=== PATIENT | male | born 1960 | race African-American/Black ===

== ENCOUNTER 2019-04-28 13:42 | Inpatient (IN) | payer BC ==
[2019-04-28 13:52] VITALS: BMI 25.9
[2019-04-28] MEDS ORDERED: ADENOSINE 6 MG/2 ML VIAL IVPUSH ONE ×2 (14:03→14:23)
[2019-04-28] MEDS ORDERED: SODIUM CHLORIDE 1,000 ML IV STA (14:23)
--- NOTE | 2019-04-28 14:23 | PDOC ---
History of Present Illness - General Chief Complaint: Palpitations Stated Complaint: ASMTHA Past History - Past Medical History Allergies/Adverse Reactions: Allergies Allergy/AdvReac Type Severity Reaction Status Date / Time ibuprofen [From Advil] AdvReac Intermediate Swelling Verified 04/28/19 13:52 Home Medications: Ambulatory Orders Albuterol 0.083% Nebulizer Nguyen [Ventolin 0.083% Nebulizer Soln -] 1 neb NEB Q6H #30 vial 08/09/16 Albuterol Sulfate [Proair Respiclick] 90 mcg IH ASDIR #1 aer.pow.ba 08/09/16 Azithromycin [Zithromax -] 250 mg PO UTDICT #6 tab 08/09/16 predniSONE [Deltasone -] 40 mg PO DAILY #14 tablet 08/09/16 Anemia: No Asthma: Yes Cancer: No Cardiac Disorders: No CVA: No COPD: No CHF: No Dementia: No Diabetes: No GI Disorders: No Disorders: No HTN: No Hypercholesterolemia: No Liver Disease: No Seizures: No Thyroid Disease: No - Surgical History Abdominal Surgery: No Appendectomy: No Cardiac Surgery: No Cholecystectomy: No Lung Surgery: No Neurologic Surgery: No Orthopedic Surgery: No - Immunization History Td Vaccination: Yes TDAP Vaccination: Yes Immunization Up to Date: Yes - Psycho Social/Smoking Cessation Hx Smoking Status: Yes Smoking History: Current every day smoker Years of Tobacco Use: 5 Have you smoked in the past 12 months: No Number of Cigarettes Smoked Daily: 10 Information on smoking cessation initiated: No 'Breaking Loose' booklet given: 08/23/13 Hx Alcohol Use: No Drug/Substance Use Hx: No Substance Use Type: Alcohol, Prescribed Hx Substance Use Treatment: Yes (25 YRS AGO [facility]) *Physical Exam - Vital Signs Last Vital Signs Temp Pulse Resp BP Pulse Ox 98.3 F 91 H 18 93/68 98 04/28/19 13:48 04/28/19 13:48 04/28/19 13:48 04/28/19 13:48 04/28/19 13:48 ED Treatment Course - LABORATORY CBC & Chemistry Diagram: 04/29/19 11:00 04/29/19 04:40 Medical Decision Making - Medical Decision Making HPI: 58yo M with PMH of asthma presenting with shortness of breath and palpitations. Patient states that his symptoms different from his asthma. He felt short of breath last night as he sometimes does with his asthma but did not use his albuterol because he was afraid he might run out. This morning he took his albuterol twice and felt palpitations and shortness of breath. Never felt this way after taking albuterol in the past and has taken this medication for years. Does not have chest pain. Denies cardiac history or history of thyroid problems. Has never followed with a real estate clerk. No fevers or chills. PCP: Dr. Barker ROS: Constitutional: no fever, no chills HEENT: no throat pain, no dysphagia Cardiovascular: no chest pain, +palpitations Respiratory: no cough, +shortness of breath Gastrointestinal: no abdominal pain, no nausea Genitourinary: no dysuria, no hematuria Musculoskeletal: no myalgia, no arthralgia Skin: no rash, no itching Neurologic: no headache, no weakness PE: General: Awake, alert, and fully oriented, in no acute distress Head: No signs of trauma Eyes: EOMI, sclera anicteric ENT: Moist mucus membranes Neck: Normal ROM, supple Lungs: Lungs clear, Normal breath sounds Cardio: Tachycardic, Regular rhythm, S1 and S2 present Abdomen: Soft, nontender Extremities: Normal range of motion, Distal pulses present SKIN: Warm, Dry, normal turgor Neurologic: Cranial nerves II through XII grossly intact. Normal speech ED Course/MDM: SVT with HR in the 170s EKG at 13:45: rate 170, QTc 443, SVT Valsalva maneuver unsuccessful Adenosine 6mg given Rate transitioned to the low 100s 04/28/19 14:22 CBC WBC 14.3 K/mm3 (4.0-10.0) H 04/28/19 14:40 RBC 5.45 M/mm3 (4.00-5.60) 04/28/19 14:40 Hgb 16.0 GM/dL (11.7-16.9) 04/28/19 14:40 Hct 48.7 % (35.4-49) 04/28/19 14:40 MCV 89.4 fl (80-96) 04/28/19 14:40 MCH 29.4 pg (25.7-33.7) 04/28/19 14:40 MCHC 32.9 g/dl (32.0-35.9) 04/28/19 14:40 RDW 13.4 % (11.9-15.9) 04/28/19 14:40 Plt Count 334 K/MM3 (134-434) D 04/28/19 14:40 MPV 8.5 fl (7.5-11.1) 04/28/19 14:40 Absolute Neuts (auto) 9.2 K/mm3 (1.5-8.0) H 04/28/19 14:40 Neutrophils % 64.5 % (42.8-82.8) D 04/28/19 14:40 Lymphocytes % 27.2 % (8-40) D 04/28/19 14:40 Monocytes % 6.0 % (3.8-10.2) D 04/28/19 14:40 Eosinophils % 1.5 % (0-4.5) 04/28/19 14:40 Basophils % 0.8 % (0-2.0) 04/28/19 14:40 Nucleated RBC % 0 % (0-0) 04/28/19 14:40 Leukocytosis CMP Sodium 139 mmol/L (136-145) 04/28/19 14:40 Potassium 4.5 mmol/L (3.5-5.1) 04/28/19 14:40 Chloride 104 mmol/L (98-107) 04/28/19 14:40 Carbon Dioxide 29 mmol/L (21-32) 04/28/19 14:40 Anion Gap 6 MMOL/L (8-16) L 04/28/19 14:40 BUN 19.2 mg/dL (7-18) H 04/28/19 14:40 Creatinine 1.3 mg/dL (0.55-1.3) 04/28/19 14:40 Est GFR (CKD-EPI)AfAm 69.71 04/28/19 14:40 Est GFR (CKD-EPI)NonAf 60.14 04/28/19 14:40 Random Glucose 322 mg/dL (74-106) H 04/28/19 14:40 Calcium 9.5 mg/dL (8.5-10.1) 04/28/19 14:40 Magnesium 2.0 mg/dL (1.8-2.4) 04/28/19 14:40 Total Bilirubin 0.4 mg/dL (0.2-1) 04/28/19 14:40 AST 17 U/L (15-37) 04/28/19 14:40 ALT 37 U/L (13-61) 04/28/19 14:40 Alkaline Phosphatase 124 U/L (45-117) H 04/28/19 14:40 Creatine Kinase 176 U/L (26-308) 04/28/19 14:40 Creatine Kinase Index 2.8 % (0.0-5.0) 04/28/19 14:40 CK-MB (CK-2) 5.1 ng/mL (0.5-3.6) H 04/28/19 14:40 Troponin I 0.12 ng/ml (0.00-0.05) H 04/28/19 14:40 Total Protein 7.3 g/dl (6.4-8.2) 04/28/19 14:40 Albumin 4.1 g/dl (3.4-5.0) 04/28/19 14:40 TSH 3.85 uIU/ml (0.358-3.74) H 04/28/19 14:40 Electrolytes unremarkable Tsh mildly elevated Tpn elevated, 0.12 Rate in the 90s CXR as read by radiology: "Indication: Tachycardia Prior: July 2016 Procedure : Single view of the chest is performed. Findings: No osseous abnormalities are identified. Cardiac silhouette is within normal limits. Mediastinum is within normal limits with no evidence of widening. Aortic knob and descending aorta are well defined. There is no focal infiltrate or pleural effusion. No pneumothorax or pulmonary contusion is identified. IMPRESSION: No active pulmonary disease " Plan for admission 04/28/19 16:42 Dr. Wright discussed case with Dr. Villegas who accepted patient for admission under Dr. Hawkins 04/28/19 17:03 Discharge - Discharge Information Problems reviewed: Yes Clinical Impression/Diagnosis: Palpitations, SVT (supraventricular tachycardia) Condition: Guarded - Admission Yes - Follow up/Referral - Patient Discharge Instructions - Post Discharge Activity
--- NOTE | 2019-04-28 14:32 | PDOC ---
Attending Attestation - Resident Resident Name: Brooke Aguirre - ED Attending Attestation I have performed the following: I have examined & evaluated the patient, The case was reviewed & discussed with the resident, I agree w/resident's findings & plan, Exceptions are as noted - HPI HPI: 04/28/19 14:24 58-year-old male with a history of asthma presents to the emergency department with shortness of breath since last night and palpitations for the last 2 hours. Patient reports that shortness of breath last night felt like his asthma but he ran out of his nebulizer. He also did not use his albuterol pump because last night because he was worried he would run out, and was not sure if he really needed it. This morning when the shortness of breath continued, he used his albuterol twice and shortly thereafter began to experience palpitations. Denies any chest pain. Denies fevers, chills, coughing, diaphoresis, dizziness, focal weakness or numbness, abdominal pain.Has otherwise been in his usual state of good health. Denies any recent travel or immobility. - Physicial Exam PE: 04/28/19 14:32 GENERAL: Awake, alert, and fully oriented, in no acute distress. EYES: PERRLA, EOMI, sclera anicteric, conjunctiva clear ENT: Oropharynx clear without exudates. Moist mucosa NECK: Normal ROM, supple, no lymphadenopathy, JVD, or masses LUNGS: Breath sounds equal, clear to auscultation bilaterally. No wheezes, and no crackles HEART: HR 171, regular, normal S1 and S2, no murmurs, rubs or gallops ABDOMEN: Soft, nontender, normoactive bowel sounds. No guarding, no rebound. No masses EXTREMITIES: Normal range of motion, no edema. No cords, erythema, or tenderness. WWP distally. NEUROLOGICAL: Normal speech, cranial nerves intact, equal strength and sensation b/l SKIN: Warm, Dry, normal turgor, no rashes or lesions noted. - Medical Decision Making 04/28/19 14:33 58-year-old male with a history of asthma presents to the emergency department with supraventricular tachycardia to 170. BP 122/100 and stable. Vagal maneuver with leg raise was attempted unsuccessfully. As such patient was given adenosine 6 mg with improvement of heart rate from 170 to 110. Rpt BP 126/96. Patient feeling better, but still reporting some dyspnea. SVT may have been triggered by the albuterol, however patient states he uses his albuterol almost daily with no history of palpitations or fast heart rate. Lungs are clear with no wheezing. Plan for dyspnea and cardiac work-up with labs and chest x-ray. Anticipate admission. 04/28/19 16:55 Labs remarkable for troponin of 0.12, likely demand in the setting of tachycardia. Labs also remarkable for random glucose of 322, patient denies history of diabetes. No anion gap to suggest DKA. Remaining labs within normal limits Chest x-ray clear Case discussed with nurse practitioner kelsie, patient accepted for admission to Dr. Hawkins's service Case discussed in detail with admitting physician including history, physical exam and ancillary studies. Admitting physician has assumed care for the patient, will follow all pending diagnostics and will complete the evaluation and treatment. Heart Score/ECG Review #1 04/28/19 14:36 Twelve-lead EKG was performed and reviewed by me. Supraventricular tachycardia, rate 170. Normal axis. No ST elevations or T wave inversions. #2 04/28/19 14:36 EKG read and interpreted by me. Sinus tachycardia, rate 115. Normal axis. No ST elevations or T wave inversions.
[2019-04-28 14:57] LABS: BASO % 0.8 % (0-2.0); EOS % 1.5 % (0-4.5); HEMATOCRIT 48.7 % (35.4-49); LYMPH % 27.2 % (8-40); MCH 29.4 pg (25.7-33.7); MCHC 32.9 g/dl (32.0-35.9); MEAN CELL VOLUME 89.4 fl (80-96); MEAN PLT VOLUME 8.5 fl (7.5-11.1); NEUT % 64.5 % (42.8-82.8); PLATELET COUNT 334 K/MM3 (134-434); RBC 5.45 M/mm3 (4.00-5.60); RDW 13.4 % (11.9-15.9); WHITE BLOOD COUNT 14.3 K/mm3 (4.0-10.0)
[2019-04-28 15:12] LABS: INR 0.97 (0.83-1.09); PROTHROMBIN TIME (PATIENT) 11.5 SEC (9.7-13.0)
[2019-04-28 15:15] LABS: ACTIVATED PTT 38.9 SECONDS (25.2-36.5)
[2019-04-28 15:34] LABS: ALBUMIN 4.1 g/dl (3.4-5.0); BILIRUBIN,TOTAL 0.4 mg/dL (0.2-1); BLOOD UREA NITROGEN 19.2 mg/dL (7-18); CALCIUM 9.5 mg/dL (8.5-10.1); CREATININE 1.3 mg/dL (0.55-1.3); POTASSIUM 4.5 mmol/L (3.5-5.1); TOT PROT 7.3 g/dl (6.4-8.2)
--- NOTE | 2019-04-28 15:42 | EKG ---
Test Reason : Blood Pressure : / mmHG Vent. Rate : 170 BPM Atrial Rate : 150 BPM P-R Int : 000 ms QRS Dur : 082 ms QT Int : 264 ms P-R-T Axes : 000 064 046 degrees QTc Int : 443 ms SUPRAVENTRICULAR TACHYCARDIA OTHERWISE NORMAL ECG WHEN COMPARED WITH ECG OF 09-AUG-2016 16:11, VENT. RATE HAS INCREASED BY 63 BPM Confirmed by Jose Raul Garcia ([id number]) on 04/28/2019 3:42:33 PM Referred By: Confirmed By:Jose Raul Garcia
[2019-04-28] MEDS ORDERED: ASPIRIN 325 MG TABLET PO ONE (16:14)
[2019-04-28] MEDS ORDERED: ASPIRIN 325 MG ENTERIC COATED TABLET (FP) ONE (16:54)
--- NOTE | 2019-04-28 16:57 | HP ---
CHIEF COMPLAINT: chest pain, heart palpitations and shortness of breath PCP: does not have one, last saw PCP about 8-10 years ago. HISTORY OF PRESENT ILLNESS: Patient is a 58 year old male with a significant past medical history of asthma and current daily smoker. He presents to the ED today with c/o of shortness of breath since last night. Last night he attempted to use his nebulizer but did not have enough and therefore did not use any. He went to bed and this morning the shortness of breath worsened and he used his albuterol twice and began to have palpitations after. He denies chest pain. In the ED he was noted be in supraventricular tachycardia to the 170s with a BP 120s/100s. Vagal maneuver with leg raise was attempted, but unsuccessful per ED signout. He was given adenosine 6 mg with improvement of heart rate from 170 to 110, BP 120/90s. On exam, patient reports feeling better, but still having dyspnea with physical exertion. Denies chest pain. He reports overuse of allbuterol but has not ever experienced palpitations after using it. He reports that he has not seen a PCP in over 10 years. He uses his family allbuteral nebulizers and at times will use it up to 15 times per day. He has never been told his blood sugars were elevated. ER course was notable for: (1) troponin of 0.12 (2) glucose of 322 (3) ekg SVT, rate 170, no ST elevations or T wave inversions. Sinus tachycardia , rate 115. No ST elevations or T wave inversions. Recent Travel: denies PAST MEDICAL HISTORY: asthma and daily smoker PAST SURGICAL HISTORY: none Social History: Smokin/2 pack daily Alcohol: denies Drugs: denies Allergies ibuprofen [From Advil] Adverse Reaction (Intermediate, Verified 04/28/19 13:52) Swelling HOME MEDICATIONS: Home Medications Medication Instructions Recorded Albuterol 0.083% Nebulizer Nguyen 1 neb NEB Q6H #30 vial 08/09/16 [Ventolin 0.083% Nebulizer Soln -] Albuterol Sulfate [Proair 90 mcg IH ASDIR #1 aer.pow.ba 08/09/16 Respiclick] Azithromycin [Zithromax -] 250 mg PO UTDICT #6 tab 08/09/16 predniSONE [Deltasone -] 40 mg PO DAILY #14 tablet 08/09/16 REVIEW OF SYSTEMS PHYSICAL EXAMINATION Vital Signs - 24 hr 04/28/19 13:48 Temperature 98.3 F Pulse Rate 91 H Respiratory 18 Rate Blood Pressure 93/68 O2 Sat by Pulse 98 Oximetry (%) GENERAL: Awake, alert, and fully oriented, in no acute distress. HEAD: Normal with no signs of trauma. EYES: Pupils equal, round and reactive to light, extraocular movements intact, sclera anicteric, conjunctiva clear. No lid lag. EARS, NOSE, THROAT: Ears normal, nares patent, oropharynx clear without exudates. Moist mucous membranes. NECK: Normal range of motion, supple without lymphadenopathy, JVD, or masses. LUNGS: Breath sounds equal, clear to auscultation bilaterally. No wheezes, and no crackles. No accessory muscle use. HEART: Regular rate and rhythm, normal S1 and S2 without murmur, rub or gallop. ABDOMEN: Soft, nontender, not distended, normoactive bowel sounds, no guarding, no rebound, no masses. No hepatomegaly or splenomegaly. MUSCULOSKELETAL: Normal range of motion at all joints. No bony deformities or tenderness. No CVA tenderness. UPPER EXTREMITIES: 2+ pulses, warm, well-perfused. No cyanosis. No clubbing. No peripheral edema. LOWER EXTREMITIES: 2+ pulses, warm, well-perfused. No calf tenderness. No peripheral edema. NEUROLOGICAL: Cranial nerves II-XII intact. Normal speech. Normal gait. PSYCHIATRIC: Cooperative. Good eye contact. Appropriate mood and affect. SKIN: Warm, dry, normal turgor, no rashes or lesions noted, normal capillary refill. Laboratory Results - last 24 hr 04/28/19 04/28/19 04/28/19 14:40 14:40 14:40 WBC 14.3 H RBC 5.45 Hgb 16.0 Hct 48.7 MCV 89.4 MCH 29.4 MCHC 32.9 RDW 13.4 Plt Count 334 D MPV 8.5 Absolute Neuts (auto) 9.2 H Neutrophils % 64.5 D Lymphocytes % 27.2 D Monocytes % 6.0 D Eosinophils % 1.5 Basophils % 0.8 Nucleated RBC % 0 PT with INR 11.50 INR 0.97 PTT (Actin FS) 38.9 H Sodium Potassium Chloride Carbon Dioxide Anion Gap BUN Creatinine Est GFR (CKD-EPI)AfAm Est GFR (CKD-EPI)NonAf Random Glucose Calcium Magnesium Total Bilirubin AST ALT Alkaline Phosphatase Creatine Kinase 176 Creatine Kinase Index 2.8 CK-MB (CK-2) 5.1 H Troponin I 0.12 H Total Protein Albumin TSH 04/28/19 14:40 WBC RBC Hgb Hct MCV MCH MCHC RDW Plt Count MPV Absolute Neuts (auto) Neutrophils % Lymphocytes % Monocytes % Eosinophils % Basophils % Nucleated RBC % PT with INR INR PTT (Actin FS) Sodium 139 Potassium 4.5 Chloride 104 Carbon Dioxide 29 Anion Gap 6 L BUN 19.2 H Creatinine 1.3 Est GFR (CKD-EPI)AfAm 69.71 Est GFR (CKD-EPI)NonAf 60.14 Random Glucose 322 H Calcium 9.5 Magnesium 2.0 Total Bilirubin 0.4 AST 17 ALT 37 Alkaline Phosphatase 124 H Creatine Kinase Creatine Kinase Index CK-MB (CK-2) Troponin I Total Protein 7.3 Albumin 4.1 TSH 3.85 H ASSESSMENT/PLAN: Family Medical History Family History: Denies Problem List - Problem (1) NSTEMI (non-ST elevated myocardial infarction) Assessment/Plan: elevated troponins in the setting of SVT. Required adenosine 6mg in the ED for rate control after ekg showed SVT 170s. He was successfully converted. Now currently Sinus tachycardia 160s. Etiology of SVT unclear, but has been overusing allbuterol up to 15 times per day at home. He does not have a PCP. Monitor on tele echocardiogram Cardiology consult trend troponins Further workup per cardiology monitor BP start on cardizem for rate control, no BB secondary to asthma. Code(s): I21.4 - NON-ST ELEVATION (NSTEMI) MYOCARDIAL INFARCTION (2) SVT (supraventricular tachycardia) Assessment/Plan: given adenosine with conversion to sinus tachy 90s 110s start on cardizem 30mg PO TID utox echo hydrate montor on tele monitor electrolytes Code(s): I47.1 - SUPRAVENTRICULAR TACHYCARDIA (3) Troponin level elevated Assessment/Plan: elevated troponin on admission. continue to trend. likely demand ischemia. cardiology consulted. Code(s): R79.89 - OTHER SPECIFIED ABNORMAL FINDINGS OF BLOOD CHEMISTRY (4) Palpitations Assessment/Plan: see above. Code(s): R00.2 - PALPITATIONS (5) Asthma Assessment/Plan: uncontrolled asthma with very poor follow up and overuse of allbuterol pulmonary consulted Code(s): J45.909 - UNSPECIFIED ASTHMA, UNCOMPLICATED Qualifiers: Asthma severity: mild intermittent (6) Hyperglycemia Assessment/Plan: serum blood glucose 322 on admission labs no history of diabetes per patient and has not had any workup. will order hmgA1c in a.m. monitor bgms ac/hs Code(s): R73.9 - HYPERGLYCEMIA, UNSPECIFIED (7) Dyspnea Code(s): R06.00 - DYSPNEA, UNSPECIFIED (8) Hypoxia Code(s): R09.02 - HYPOXEMIA (9) Prophylactic measure Assessment/Plan: fen hydrate overnight monitor electrolytes low salt diet/convert to diabetic diet if hmga1c elevated full code heparin bid Code(s): Z29.9 - ENCOUNTER FOR PROPHYLACTIC MEASURES, UNSPECIFIED Visit type - Emergency Visit Emergency Visit: Yes ED Registration Date: 04/28/19 Care time: The patient presented to the Emergency Department on the above date and was hospitalized for further evaluation of their emergent condition. - New Patient This patient is new to me today: Yes Date on this admission: 04/29/19 - Critical Care Critical Care patient: No
[2019-04-28] MEDS ORDERED: ALBUTEROL SO4 2.5/IPRATROPIUM 0.5 INH SOL 3 ML VIAL.NEB. NEB PRN (18:18)
[2019-04-28] MEDS ORDERED: SODIUM CHLORIDE 1,000 ML IV SCH (18:30)
[2019-04-28] MEDS ORDERED: ACETAMINOPHEN 325 MG TABLET (FP) PO PRN (18:36)
[2019-04-28 19:22] LABS: PHOSPHOROUS 3.8 mg/dL (2.5-4.9)
[2019-04-28] MEDS: dilTIAZem HCL 30 MG TABLET (FP) PO SCH (23:00)
[2019-04-28] MEDS: HEPARIN NA (PORCINE) 5,000 UNITS/ML 1ML VIAL SQ SCH (23:00)
[2019-04-28] MEDS ORDERED: dilTIAZem HCL 30 MG TABLET (FP) ONE (23:18)
[2019-04-28] MEDS ORDERED: HEPARIN NA (PORCINE) 5,000 UNITS/ML 1ML VIAL ONE (23:19)
[2019-04-29] MEDS ORDERED: dilTIAZem HCL 30 MG TABLET (FP) ONE (05:30)
[2019-04-29] MEDS: dilTIAZem HCL 30 MG TABLET (FP) PO SCH ×3 (06:21→21:53)
[2019-04-29 06:43] LABS: URINE APPEARANCE CLEAR; URINE BILIRUBIN NEGATIVE (NEGATIVE); URINE COLOR YELLOW; URINE GLUCOSE (UA) 3+ (NEGATIVE); URINE KETONE NEGATIVE (NEGATIVE); URINE LEUK ESTERASE NEGATIVE (NEGATIVE); URINE NITRITE NEGATIVE (NEGATIVE); URINE PROTEIN NEGATIVE (NEGATIVE); URINE UROBILINOGEN 0.2 mg/dL (0.2-1.0)
[2019-04-29 06:52] LABS: COCAINE, UR NEGATIVE ng/ml (CUTOFF=300); METHADONE, UR NEGATIVE ng/ml (CUTOFF=300); OPIATES, URI NEGATIVE ng/ml (CUTOFF=300); PHENCYCLIDINE,URINE NEGATIVE ng/ml (CUTOFF=25); URINE AMPHETAMINES NEGATIVE ng/ml (CUTOFF=500); URINE BARBITURATES NEGATIVE ng/ml (CUTOFF=200); URINE BENZODIAZEPINES NEGATIVE ng/ml (CUTOFF=200)
[2019-04-29 09:24] LABS: ALBUMIN 3.3 g/dl (3.4-5.0); BILIRUBIN,TOTAL 0.3 mg/dL (0.2-1); BLOOD UREA NITROGEN 13.2 mg/dL (7-18); CALCIUM 8.4 mg/dL (8.5-10.1); CREATININE 0.8 mg/dL (0.55-1.3); MAGNESIUM 2.5 mg/dL (1.8-2.4); POTASSIUM 4.3 mmol/L (3.5-5.1)
[2019-04-29] MEDS ORDERED: HEPARIN NA (PORCINE) 5,000 UNITS/ML 1ML VIAL ONE (09:44)
[2019-04-29] MEDS ORDERED: PT OWN MED DRAWER 7, Y5N ONE (10:08)
--- NOTE | 2019-04-29 10:08 | CON.CARD ---
Consult Consult Specialty:: Cardiology - History of Present Illness History of Present Illness: Patient is a 58 year old male with a significant past medical history of asthma and current daily smoker He presents to the ED today with c/o of shortness of breath since last night. Last night he attempted to use his nebulizer but did not have enough and therefore did not use any. He went to bed and this morning the shortness of breath worsened and he used his albuterol twice and began to have palpitations after. He denies chest pain. In the ED he was noted be in supraventricular tachycardia to the 170s with a BP 120s/100s. Vagal maneuver with leg raise was attempted, but unsucessful per ED signout. He was given adenosine 6 mg with improvement of heart rate from 170 to 110, BP 120/90s. On exam, patient reports feeling better, but still having dyspnea with physical exertion. Denies chest pain. He reports overuse of allbuterol but has not ever experienced palpitations after using it. - History Source History Provided By: Patient, Medical Record - Past Medical History Pulmonary: Yes: Asthma - Alcohol/Substance Use Hx Alcohol Use: No History of Substance Use: reports: Tranquilizers (Ambien). 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 History of Recent Travel: Yes Home Medications - Allergies Allergies/Adverse Reactions: Allergies Allergy/AdvReac Type Severity Reaction Status Date / Time ibuprofen [From Advil] AdvReac Intermediate Swelling Verified 04/28/19 13:52 - Home Medications Home Medications: Ambulatory Orders Albuterol 0.083% Nebulizer Nguyen [Ventolin 0.083% Nebulizer Soln -] 1 neb NEB Q6H #30 vial 08/09/16 Albuterol Sulfate [Proair Respiclick] 90 mcg IH ASDIR #1 aer.pow.ba 08/09/16 Azithromycin [Zithromax -] 250 mg PO UTDICT #6 tab 08/09/16 predniSONE [Deltasone -] 40 mg PO DAILY #14 tablet 08/09/16 Review of Systems - Review of Systems Constitutional: reports: Malaise Eyes: reports: No Symptoms HENT: reports: No Symptoms Neck: reports: No Symptoms Cardiovascular: reports: Palpitations, Shortness of Breath Gastrointestinal: reports: No Symptoms Genitourinary: reports: No Symptoms Breasts: reports: No Symptoms Reported Musculoskeletal: reports: No Symptoms Integumentary: reports: No Symptoms Neurological: reports: No Symptoms Endocrine: reports: No Symptoms Hematology/Lymphatic: reports: No Symptoms Psychiatric: reports: No Symptoms Vital Signs: Vital Signs Temperature 98.3 F 04/28/19 13:48 Pulse Rate 85 04/29/19 06:09 Respiratory Rate 17 04/29/19 06:09 Blood Pressure 117/84 04/29/19 06:09 O2 Sat by Pulse Oximetry (%) 97 04/29/19 06:09 Constitutional: Yes: Well Nourished, No Distress, Calm Eyes: Yes: WNL, Conjunctiva Clear, EOM Intact HENT: Yes: WNL, Atraumatic, Normocephalic Neck: Yes: WNL, Supple, Trachea Midline Respiratory: Yes: WNL, Regular, CTA Bilaterally Gastrointestinal: Yes: WNL, Normal Bowel Sounds Renal/: Yes: WNL Cardiovascular: Yes: WNL, Regular Rate and Rhythm Musculoskeletal: Yes: WNL Extremities: Yes: WNL Integumentary: Yes: WNL Neurological: Yes: WNL, Alert, Oriented ...Motor Strength: WNL Psychiatric: Yes: WNL, Alert, Oriented - Other Data Labs, Other Data: CBC, BMP 04/28/19 14:40 04/29/19 04:40 INR, PTT INR 0.97 (0.83-1.09) 04/28/19 14:40 Troponin, BNP 04/28/19 04/28/19 04/29/19 14:40 20:50 04:40 Troponin I 0.12 H 0.16 H 0.10 H Troponin, BNP 04/28/19 04/28/19 04/29/19 14:40 20:50 04:40 Troponin I 0.12 H 0.16 H 0.10 H Imaging - Results Chest X-ray: Image Reviewed (no i/e) EKG: Image Reviewed (SVT) Problem List - Problems (1) Palpitations Code(s): R00.2 - PALPITATIONS (2) SVT (supraventricular tachycardia) Code(s): I47.1 - SUPRAVENTRICULAR TACHYCARDIA (3) Allergic conjunctivitis of left eye Code(s): H10.12 - ACUTE ATOPIC CONJUNCTIVITIS, LEFT EYE (4) Asthma Code(s): J45.909 - UNSPECIFIED ASTHMA, UNCOMPLICATED Qualifiers: Asthma severity: mild intermittent (5) Bronchitis Code(s): J40 - BRONCHITIS, NOT SPECIFIED ACUTE OR CHRONIC (6) Conjunctivitis Code(s): H10.9 - UNSPECIFIED CONJUNCTIVITIS (7) Cough variant asthma Code(s): J45.991 - COUGH VARIANT ASTHMA (8) DVT prophylaxis Code(s): [id number] - (9) Elevated liver function tests Code(s): R79.89 - OTHER SPECIFIED ABNORMAL FINDINGS OF BLOOD CHEMISTRY (10) Hypoxia Code(s): R09.02 - HYPOXEMIA (11) Laceration of eyebrow and forehead Code(s): S01.81XA - LACERATION W/O FOREIGN BODY OF OTH PART OF HEAD, INIT ENCNTR ; S01.119A - LACERATION W/O FB OF UNSP EYELID AND PERIOCULAR AREA, INIT Qualifiers: Encounter type: initial encounter Laterality: right (12) Laceration of nose Code(s): S01.21XA - LACERATION WITHOUT FOREIGN BODY OF NOSE, INITIAL ENCOUNTER Qualifiers: Encounter type: initial encounter Qualified Code(s): S01.21XA - Laceration without foreign body of nose, initial encounter (13) Pneumonia Code(s): J18.9 - PNEUMONIA, UNSPECIFIED ORGANISM (14) Rhabdomyolysis Code(s): M62.82 - RHABDOMYOLYSIS (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 demand ischemia due to SVT with HR 170 Plan telemetry echo cardizem ASA lipids mibi stress test when stable SVT ablation as outpatient
[2019-04-29] MEDS: HEPARIN NA (PORCINE) 5,000 UNITS/ML 1ML VIAL SQ SCH ×2 (10:13→21:53)
[2019-04-29] MEDS: NICOTINE 21 MG/24 HOURS TOPICAL PATCH TD SCH (11:25)
[2019-04-29] MEDS ORDERED: ASPIRIN 325 MG TABLET PO ONE (11:53)
[2019-04-29 11:56] LABS: EOS % 2.8 % (0-4.5); HEMATOCRIT 43.3 % (35.4-49); HEMOGLOBIN 14.1 GM/dL (11.7-16.9); LYMPH % 30.2 % (8-40); MCH 29.3 pg (25.7-33.7); MCHC 32.6 g/dl (32.0-35.9); MEAN CELL VOLUME 89.8 fl (80-96); MEAN PLT VOLUME 8.6 fl (7.5-11.1); MONO % 5.5 % (3.8-10.2); NEUT % 60.5 % (42.8-82.8); PLATELET COUNT 255 K/MM3 (134-434); RBC 4.82 M/mm3 (4.00-5.60); RDW 13.5 % (11.9-15.9); WHITE BLOOD COUNT 8.7 K/mm3 (4.0-10.0)
--- NOTE | 2019-04-29 12:04 | ECHO ---
Name: LIAM MORROW Exam:Adult Echocardiogram Study Date: 04/29/2019 08:38 AM Age: 58 yrs Reason For Study: Chest pain Height: 73 in Weight: 197 lb BSA: 2.1 m2 MMode/2D Measurements & Calculations IVSd: 0.87 cm Ao root diam: 3.1 cm LVIDd: 4.2 cm LA dimension: 2.8 cm LVIDs: 2.7 cm LVPWd: 0.82 cm EDV(Teich): 79.7 ml LVOT diam: 2.0 cm ESV(Teich): 27.6 ml LAV (MOD-bp): 46.2 ml Doppler Measurements & Calculations MV E max roger: 74.2 cm/sec Ao V2 max: 101.8 cm/sec MV A max roger: 64.0 cm/sec Ao max P.1 mmHg MV E/A: 1.2 MV dec time: 0.12 sec NELY(V,D): 2.5 cm2 LV V1 max P.4 mmHg PA V2 max: 81.4 cm/sec LV V1 max: 77.1 cm/sec PA max P.7 mmHg Med Peak E' Roger: 10.2 cm/sec Med E/e': 7.3 Lat Peak E' Roger: 10.6 cm/sec Lat E/e': 7.0 Procedure A two-dimensional transthoracic echocardiogram with color flow and Doppler was performed. The study w as technically difficult with many images being suboptimal in quality. Left Ventricle The left ventricular size, thickness and function are normal. The left ventricle is not well visualiz ed. The left ventricular ejection fraction is normal. Left Ventricular Filling pattern is normal for age. Reg ional wall motion abnormalities cannot be excluded due to limited visualization. Right Ventricle The right ventricle is not well visualized. Atria Normal left and right atrial size and function. Mitral Valve There is mild mitral valve thickening. There is no mitral valve stenosis. There is trace mitral regur gitation. Tricuspid Valve There is mild tricuspid valve thickening. There is no tricuspid stenosis. There was insufficient TR d etected to calculate RV systolic pressure. Aortic Valve The aortic valve is normal in structure and function. No hemodynamically significant valvular aortic stenosis. No aortic regurgitation is present. Pulmonic Valve The pulmonic valve is not well visualized. Great Vessels The aortic root is normal size. Pericardium/Pleura There is no pericardial effusion. Interpretation Summary The left ventricular size, thickness and function are normal The left ventricular ejection fraction is normal. The right ventricle is not well visualized. The study was technically difficult with many images being suboptimal in quality. The left ventricle is not well visualized. Regional wall motion abnormalities cannot be excluded due to limited visualization. Left Ventricular Filling pattern is normal for age. There is trace mitral regurgitation. There was insufficient TR detected to calculate RV systolic pressure. MD Thomas Bedolla 04/29/2019 12:03 PM
--- NOTE | 2019-04-29 12:54 | EKG ---
Test Reason : Blood Pressure : / mmHG Vent. Rate : 081 BPM Atrial Rate : 081 BPM P-R Int : 140 ms QRS Dur : 086 ms QT Int : 358 ms P-R-T Axes : 009 042 028 degrees QTc Int : 415 ms NORMAL SINUS RHYTHM NORMAL ECG Confirmed by MARTHA ARANGO MD ([id number]) on 04/29/2019 12:53:36 PM Referred By: Flo FELICIANO Confirmed By:MARTHA ARANGO MD
--- NOTE | 2019-04-29 14:12 | PN ---
Physical Exam: SUBJECTIVE: Patient seen and examined at the bedside. Denies chest pain, reports improvement of shortness of breath. Patient has not seen a PCP in apx 10 years. He will need f/u made prior to d/c. He was informed that his Hmg A1c was 8.8 which makes him a diabetic. OBJECTIVE: Patient is a 58 year old male with a significant past medical history of asthma and current daily smoker. He presents to the ED on 04/28/19 with c/o of shortness of breath. At home he attempted to use his nebulizer but did not have enough and therefore did not use any. He then woke up with worsening shortness of breath and used his albuterol twice. After albuterol, he began to have palpitations after. He denies chest pain. In the ED he was noted be in supraventricular tachycardia to the 170s with a BP 120s/100s. Vagal maneuver with leg raise was attempted, but unsuccessful per ED signout. He was given adenosine 6 mg with improvement of heart rate from 170 to 110, BP 120/90s. He reports that he has not seen a PCP in over 10 years. He uses his family allbuteral nebulizers and at times will use it up to 15 times per day. He has never been told his blood sugars were elevated. Vital Signs Period Temp Pulse Resp BP Sys/Phipps Pulse Ox Last 24 Hr 84-98 16-20 117-121/74-86 97-98 GENERAL: Awake, alert, and fully oriented, in no acute distress. HEAD: Normal with no signs of trauma. EYES: Pupils equal, round and reactive to light, extraocular movements intact, sclera anicteric, conjunctiva clear. No lid lag. EARS, NOSE, THROAT: Ears normal, nares patent, oropharynx clear without exudates. Moist mucous membranes. NECK: Normal range of motion, supple without lymphadenopathy, JVD, or masses. LUNGS: Breath sounds equal, diminished to auscultation bilaterally. no wheezing. HEART: Regular rate and rhythm, normal S1 and S2 without murmur, rub or gallop. ABDOMEN: Soft, nontender, not distended, normoactive bowel sounds, no guarding, no rebound, no masses. No hepatomegaly or splenomegaly. MUSCULOSKELETAL: Normal range of motion at all joints. No bony deformities or tenderness. No CVA tenderness. UPPER EXTREMITIES: No peripheral edema. LOWER EXTREMITIES: No peripheral edema. NEUROLOGICAL: Normal speech. Normal gait. PSYCHIATRIC: Cooperative. Good eye contact. Appropriate mood and affect. SKIN: Warm, dry, normal turgor, no rashes or lesions noted, normal capillary refill. Laboratory Results - last 24 hr 04/28/19 04/28/19 04/28/19 14:40 14:40 14:40 WBC 14.3 H RBC 5.45 Hgb 16.0 Hct 48.7 MCV 89.4 MCH 29.4 MCHC 32.9 RDW 13.4 Plt Count 334 D MPV 8.5 Absolute Neuts (auto) 9.2 H Neutrophils % 64.5 D Lymphocytes % 27.2 D Monocytes % 6.0 D Eosinophils % 1.5 Basophils % 0.8 Nucleated RBC % 0 PT with INR 11.50 INR 0.97 PTT (Actin FS) 38.9 H Sodium Potassium Chloride Carbon Dioxide Anion Gap BUN Creatinine Est GFR (CKD-EPI)AfAm Est GFR (CKD-EPI)NonAf Random Glucose Hemoglobin A1c % Calcium Phosphorus Magnesium Total Bilirubin AST ALT Alkaline Phosphatase Creatine Kinase 176 Creatine Kinase Index 2.8 CK-MB (CK-2) 5.1 H Troponin I 0.12 H Total Protein Albumin Triglycerides Cholesterol Total LDL Cholesterol HDL Cholesterol TSH Free T4 Urine Color Urine Appearance Urine pH Ur Specific [place] Urine Protein Urine Glucose (UA) Urine Ketones Urine Blood Urine Nitrite Urine Bilirubin Urine Urobilinogen Ur Leukocyte Esterase Opiates Screen Methadone Screen Barbiturate Screen Phencyclidine Screen Ur Amphetamines Screen MDMA (Ecstasy) Screen Benzodiazepines Screen Cocaine Screen U Marijuana (THC) Screen 04/28/19 04/28/19 04/29/19 14:40 20:50 04:40 WBC RBC Hgb Hct MCV MCH MCHC RDW Plt Count MPV Absolute Neuts (auto) Neutrophils % Lymphocytes % Monocytes % Eosinophils % Basophils % Nucleated RBC % PT with INR INR PTT (Actin FS) Sodium 139 142 Potassium 4.5 4.3 Chloride 104 109 H Carbon Dioxide 29 26 Anion Gap 6 L 7 L BUN 19.2 H 13.2 Creatinine 1.3 0.8 Est GFR (CKD-EPI)AfAm 69.71 114.13 Est GFR (CKD-EPI)NonAf 60.14 98.47 Random Glucose 322 H 212 H Hemoglobin A1c % Calcium 9.5 8.4 L Phosphorus 3.8 Magnesium 2.0 2.5 H Total Bilirubin 0.4 0.3 AST 17 17 ALT 37 30 Alkaline Phosphatase 124 H 98 Creatine Kinase Creatine Kinase Index CK-MB (CK-2) Troponin I 0.16 H 0.10 H Total Protein 7.3 6.0 L Albumin 4.1 3.3 L Triglycerides 104 Cholesterol 190 Total LDL Cholesterol 120 H HDL Cholesterol 46 TSH 3.85 H 3.79 H D Free T4 0.80 Urine Color Urine Appearance Urine pH Ur Specific [place] Urine Protein Urine Glucose (UA) Urine Ketones Urine Blood Urine Nitrite Urine Bilirubin Urine Urobilinogen Ur Leukocyte Esterase Opiates Screen Methadone Screen Barbiturate Screen Phencyclidine Screen Ur Amphetamines Screen MDMA (Ecstasy) Screen Benzodiazepines Screen Cocaine Screen U Marijuana (THC) Screen 04/29/19 04/29/19 04/29/19 06:00 06:00 06:00 WBC RBC Hgb Hct MCV MCH MCHC RDW Plt Count MPV Absolute Neuts (auto) Neutrophils % Lymphocytes % Monocytes % Eosinophils % Basophils % Nucleated RBC % PT with INR INR PTT (Actin FS) Sodium Potassium Chloride Carbon Dioxide Anion Gap BUN Creatinine Est GFR (CKD-EPI)AfAm Est GFR (CKD-EPI)NonAf Random Glucose Hemoglobin A1c % 8.8 H Calcium Phosphorus Magnesium Total Bilirubin AST ALT Alkaline Phosphatase Creatine Kinase Creatine Kinase Index CK-MB (CK-2) Troponin I Total Protein Albumin Triglycerides Cholesterol Total LDL Cholesterol HDL Cholesterol TSH Free T4 Urine Color Yellow Urine Appearance Clear Urine pH 5.0 Ur Specific [place] 1.036 H Urine Protein Negative Urine Glucose (UA) 3+ H Urine Ketones Negative Urine Blood Negative Urine Nitrite Negative Urine Bilirubin Negative Urine Urobilinogen 0.2 Ur Leukocyte Esterase Negative Opiates Screen Negative Methadone Screen Negative Barbiturate Screen Negative Phencyclidine Screen Negative Ur Amphetamines Screen Negative MDMA (Ecstasy) Screen Negative Benzodiazepines Screen Negative Cocaine Screen Negative U Marijuana (THC) Screen Negative 04/29/19 11:00 WBC 8.7 RBC 4.82 Hgb 14.1 Hct 43.3 MCV 89.8 MCH 29.3 MCHC 32.6 RDW 13.5 Plt Count 255 D MPV 8.6 Absolute Neuts (auto) 5.3 Neutrophils % 60.5 Lymphocytes % 30.2 Monocytes % 5.5 Eosinophils % 2.8 D Basophils % 1.0 Nucleated RBC % 0 PT with INR INR PTT (Actin FS) Sodium Potassium Chloride Carbon Dioxide Anion Gap BUN Creatinine Est GFR (CKD-EPI)AfAm Est GFR (CKD-EPI)NonAf Random Glucose Hemoglobin A1c % Calcium Phosphorus Magnesium Total Bilirubin AST ALT Alkaline Phosphatase Creatine Kinase Creatine Kinase Index CK-MB (CK-2) Troponin I Total Protein Albumin Triglycerides Cholesterol Total LDL Cholesterol HDL Cholesterol TSH Free T4 Urine Color Urine Appearance Urine pH Ur Specific [place] Urine Protein Urine Glucose (UA) Urine Ketones Urine Blood Urine Nitrite Urine Bilirubin Urine Urobilinogen Ur Leukocyte Esterase Opiates Screen Methadone Screen Barbiturate Screen Phencyclidine Screen Ur Amphetamines Screen MDMA (Ecstasy) Screen Benzodiazepines Screen Cocaine Screen U Marijuana (THC) Screen Active Medications Generic Name Dose Route Start Last Admin Trade Name Freq PRN Reason Stop Dose Admin Acetaminophen 650 mg 04/28/19 18:36 Tylenol - PO Q6H PRN PAIN LEVEL 4 - 6 Albuterol/Ipratropium 1 amp 04/28/19 18:18 Duoneb - NEB Q6H PRN SHORTNESS OF BREATH Aspirin 81 mg 04/30/19 10:00 Ecotrin - PO DAILY BETTY Diltiazem HCl 30 mg 04/28/19 22:00 04/29/19 06:21 Cardizem - PO 30 mg TID BETTY Administration Heparin Sodium (Porcine) 5,000 unit 04/28/19 22:00 04/29/19 10:13 Heparin - SQ 5,000 unit BID BETTY Administration Sodium Chloride 1,000 mls @ 100 mls/hr 04/28/19 18:30 04/28/19 19:30 Normal Saline - IV 100 mls/hr ASDIR BETTY Administration Nicotine 21 mg 04/29/19 10:00 04/29/19 11:25 Nicoderm Patch - TD 21 mg DAILY BETTY Administration ASSESSMENT/PLAN: Problem List - Problems (1) NSTEMI (non-ST elevated myocardial infarction) Assessment/Plan: elevated troponins in the setting of SVT. Required adenosine 6mg in the ED for rate control after ekg showed SVT 170s. He was successfully converted. Now currently Sinus tachycardia 100s. Etiology of SVT unclear, but has been overusing allbuterol up to 15 times per day at home. He does not have a PCP. Monitor on tele echocardiogram noted and reviewed. mild tricuspid regurg. overall study with suboptimal views. Cardiology consulted and following troponins .12 .16 .10 without chest pain. Nstemi vs. demand ischemia per cardiology patient for a stress test per cardiology start on cardizem 30mg tid for rate control, no BB secondary to asthma. Problems reviewed: Yes Code(s): I21.4 - NON-ST ELEVATION (NSTEMI) MYOCARDIAL INFARCTION (2) SVT (supraventricular tachycardia) Assessment/Plan: given adenosine with conversion to sinus tachy 90s 110s start on cardizem 30mg PO TID utox negative montor on tele monitor electrolytes Problems reviewed: Yes Code(s): I47.1 - SUPRAVENTRICULAR TACHYCARDIA (3) Troponin level elevated Assessment/Plan: elevated troponins 12>16>10 likely demand ischemia vs nstemi cardiology consulted and following Problems reviewed: Yes Code(s): R79.89 - OTHER SPECIFIED ABNORMAL FINDINGS OF BLOOD CHEMISTRY (4) Palpitations Assessment/Plan: see above. Code(s): R00.2 - PALPITATIONS (5) Asthma Assessment/Plan: uncontrolled asthma with very poor follow up and overuse of allbuterol pulmonary consulted Problems reviewed: Yes Code(s): J45.909 - UNSPECIFIED ASTHMA, UNCOMPLICATED Qualifiers: Asthma severity: mild intermittent (6) Diabetes Assessment/Plan: elevated glucose on admission. HmgA1c 8.8% Started on novolog SS endocrinology consulted patient to be taught how to use glucometer and dietary teaching on diabetes Problems reviewed: Yes Code(s): E11.9 - TYPE 2 DIABETES MELLITUS WITHOUT COMPLICATIONS (7) Dyspnea Assessment/Plan: resolving. tolerating room air with stable saturations. Problems reviewed: Yes Code(s): R06.00 - DYSPNEA, UNSPECIFIED (8) Hypoxia Assessment/Plan: oxygen prn. uncontrolled asthma. pulmonary consulted. Problems reviewed: Yes Code(s): R09.02 - HYPOXEMIA (9) Prophylactic measure Assessment/Plan: fen hydrate overnight monitor electrolytes low salt diet/convert to diabetic diet if hmga1c elevated full code heparin bid Problems reviewed: Yes Code(s): Z29.9 - ENCOUNTER FOR PROPHYLACTIC MEASURES, UNSPECIFIED Visit type - Emergency Visit Emergency Visit: Yes ED Registration Date: 04/28/19 Care time: The patient presented to the Emergency Department on the above date and was hospitalized for further evaluation of their emergent condition. - New Patient This patient is new to me today: No - Critical Care Critical Care patient: No - Discharge Referral Referred to [facility] Yes Physician Referral: Bradley Roldan MD ([facility])
--- NOTE | 2019-04-29 15:00 | PN ---
Progress Note (short form) - Note Progress Note: PULMONARY CONSULTATION DICTATED 04/29/19 IMP DYSPNEA ?ASTHMA,?CARDIAC SVT HTN TOBACCO ABUSE DIABETES + TROPONIN PLAN XOPENEX D-DIMER IF ELEVATED CHEST CTA O2 NEEDED SMOKING CESSATION COUNSELED YEARLY LOW DOSE CHEST CT FOR LUNG CANCER SCREENING TREND TROPONIN GLYCEMIC CONTROL STRESS MIBI DR SALAMANCA Problem List - Problems (1) Dyspnea Code(s): R06.00 - DYSPNEA, UNSPECIFIED (2) Palpitations Code(s): R00.2 - PALPITATIONS (3) SVT (supraventricular tachycardia) Code(s): I47.1 - SUPRAVENTRICULAR TACHYCARDIA (4) Asthma Code(s): J45.909 - UNSPECIFIED ASTHMA, UNCOMPLICATED Qualifiers: Asthma severity: mild intermittent (5) Troponin level elevated Code(s): R79.89 - OTHER SPECIFIED ABNORMAL FINDINGS OF BLOOD CHEMISTRY (6) Diabetes Code(s): E11.9 - TYPE 2 DIABETES MELLITUS WITHOUT COMPLICATIONS
[2019-04-29] MEDS ORDERED: LEVALBUTEROL HCL 0.31 MG/3 ML VIAL.NEB IH PRN (15:16)
[2019-04-29] MEDS: INSULIN SLIDING SCALE (NOVOLOG) 1 VIAL SQ SCH ×2 (17:50→21:56)
[2019-04-29] MEDS ORDERED: INSULIN (NOVOLOG) ASPART 100 UNITS/ML 10ML VIAL ONE (17:51)
--- NOTE | 2019-04-29 18:37 | CONS ---
DATE OF CONSULTATION: 04/29/2019 PULMONARY CONSULTATION REFERRING PHYSICIAN: Kristin Hawkins MD HISTORY OF PRESENT ILLNESS: Patient is a 58-year-old white with a past medical history of asthma for approximately 20 years; tobacco use - he has smoked one-half pack per day for greater than 40 years and is currently still smoking, hypertension. He was admitted to [facility] on April 28 with a complaint of increasing shortness of breath. The patient states he is always chronically short of breath. On the day of admission, though, he woke up and started to develop increasing shortness of breath which was different than his usual. He took his inhaler without any improvement. He said after taking two treatments of albuterol, he started developing palpitations, at which time he presented to the emergency room. In the ER, he was noted to be in supraventricular tachycardia with a rate of 170 with BP in the 120s over the 100s. Valsalva maneuver was attempted but was unsuccessful. The patient was given adenosine with improvement in heart rate. The patient denies any chest pain or nausea. He states that he did have diaphoresis associated with his shortness of breath when it first started. He complains of shortness of breath with exertion. He denies any hemoptysis. Denies any chronic cough or wheezing with this most recent episode, although he states that approximately two days prior to his admission, he did have wheezing. 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 He does not wear a mask. PAST MEDICAL HISTORY: Again, includes hypertension as well as chronic asthma. REVIEW OF SYSTEMS: Positive for shortness of breath with exertion. No chest pain. Positive for diaphoresis. No nausea or vomiting. No hemoptysis, no abdominal pain. SOCIAL HISTORY: History of tobacco use at one-half pack per day for greater than 40 years. 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 CURRENT MEDICATIONS: Include Tylenol, subcutaneous heparin, Nicoderm patch, DuoNeb, Cardizem, NovoLog, and Ecotrin. PHYSICAL EXAMINATION: General: Patient is a well-developed, well-nourished male, awake and alert, in no acute distress. Vital Signs: He is afebrile. Blood pressure is 140/99, respiratory rate 18, O2 saturation is 98% on room air. HEENT: Head is normocephalic, atraumatic. Neck: Supple. Heart: Regular. S1, S2. Chest: Clear. Abdomen: Soft. Bowel sounds are positive. Extremities: No cyanosis or edema. LABORATORY: BUN 13, creatinine 0.8, glucose 212, hemoglobin A1c is 8.8, troponin was initially 0.12 and repeat was 0.16; the most recent troponin is 0.10. TSH is 3.79. A chest x-ray showed no infiltrates or effusions. IMPRESSION: 1. Dyspnea, etiology to be determined, rule out possible asthma but the patient is without any bronchospasm, rule out cardiac etiology. 2. Supraventricular tachycardia, corrected status post adenosine. 3. Hypertension. 4. Diabetes. 5. Positive troponins. 6. Tobacco abuse. PLAN: 1. Start Xopenex via nebulizer p.r.n. 2. Obtain serum D-dimer. If elevated, would obtain a chest CTA. 3. Supplemental O2 as needed. 4. Smoking cessation counseled. 5. Yearly low-dose chest CT for lung cancer screening. 6. Trend troponins. 7. Glycemic control. 8. Stress sestamibi as per Cardiology. EVITA SALAMANCA M.D. [id number]
[2019-04-29] MEDS ORDERED: diphenhydrAMINE HCL 25 MG CAPSULE (FP) PO ONE (21:38)
[2019-04-29] MEDS ORDERED: MELATONIN 5 MG TABLETS PO PRN (22:02)
[2019-04-30] MEDS: dilTIAZem HCL 30 MG TABLET (FP) PO SCH ×2 (05:46→13:05)
[2019-04-30] MEDS ORDERED: INSULIN (NOVOLOG) ASPART 100 UNITS/ML 10ML VIAL ONE (06:16)
[2019-04-30] MEDS: INSULIN SLIDING SCALE (NOVOLOG) 1 VIAL SQ SCH ×2 (06:58→12:45)
[2019-04-30 08:00] VITALS: TEMP 98
[2019-04-30] MEDS ORDERED: ASPIRIN COATED 81 MG TABLET.EC PO SCH (10:00)
[2019-04-30] MEDS ORDERED: LISINOPRIL 5 MG TABLET (FP) PO SCH (10:00)
--- NOTE | 2019-04-30 10:01 | PN ---
Progress Note, Physician History of Present Illness: 58-year-old male with a history of asthma presents to the emergency department with shortness of breath since last night and palpitations for the last 2 hours. Patient reports that shortness of breath last night felt like his asthma but he ran out of his nebulizer. He also did not use his albuterol pump because last night because he was worried he would run out, and was not sure if he really needed it. This morning when the shortness of breath continued, he used his albuterol twice and shortly thereafter began to experience palpitations. Denies any chest pain. Denies fevers, chills, coughing, diaphoresis, dizziness, focal weakness or numbness, abdominal pain.Has otherwise been in his usual state of good health. Denies any recent travel or immobility. - Current Medication List Current Medications: Active Medications Acetaminophen (Tylenol -) 650 mg PO Q6H PRN PRN Reason: PAIN LEVEL 4 - 6 Albuterol/Ipratropium (Duoneb -) 1 amp NEB Q6H PRN PRN Reason: SHORTNESS OF BREATH Aspirin (Ecotrin -) 81 mg PO DAILY [facility] Atorvastatin Calcium (Lipitor -) 20 mg PO HS [facility] Diltiazem HCl (Cardizem -) 30 mg PO TID [facility] Last Admin: 04/30/19 05:46 Dose: Not Given Heparin Sodium (Porcine) (Heparin -) 5,000 unit SQ BID [facility] Last Admin: 04/29/19 21:53 Dose: 5,000 unit Insulin Aspart (Novolog Vial Sliding Scale -) 1 vial SQ ACHS [facility]; Protocol Last Admin: 04/30/19 06:58 Dose: Not Given Levalbuterol HCl (Xopenex) 0.31 mg IH Q8H PRN PRN Reason: ASTHMA Lisinopril (Prinivil) 2.5 mg PO DAILY [facility] Melatonin (Melatonin) 5 mg PO HS PRN PRN Reason: INSOMNIA Montelukast Sodium (Singulair -) 10 mg PO HS [facility] Nicotine (Nicoderm Patch -) 21 mg TD DAILY [facility] Last Admin: 04/29/19 11:25 Dose: 21 mg - Objective Vital Signs: Vital Signs Temperature 98 F 04/30/19 07:59 Pulse Rate 76 04/30/19 07:59 Respiratory Rate 18 04/30/19 07:59 Blood Pressure 118/86 04/30/19 07:59 O2 Sat by Pulse Oximetry (%) 98 04/29/19 20:30 Labs: CBC, BMP 04/29/19 11:00 04/29/19 04:40 INR, PTT INR 0.97 (0.83-1.09) 04/28/19 14:40 Problem List - Problems (1) Cigarette nicotine dependence Assessment/Plan: On nicotine patch. Code(s): F17.210 - NICOTINE DEPENDENCE, CIGARETTES, UNCOMPLICATED (2) Diabetes Assessment/Plan: start lisinopril for HTN, DM. Code(s): E11.9 - TYPE 2 DIABETES MELLITUS WITHOUT COMPLICATIONS (3) Dyspnea Code(s): R06.00 - DYSPNEA, UNSPECIFIED (4) Palpitations Code(s): R00.2 - PALPITATIONS (5) SVT (supraventricular tachycardia) Assessment/Plan: on diltiazem; can change to long-acting CD 120 mg daily. For stress MIBI today. Plan on EP evaluation as outpatient for possible ablation therapy. Code(s): I47.1 - SUPRAVENTRICULAR TACHYCARDIA (6) Troponin level elevated Assessment/Plan: 0.12-->0.16-->0.10 Multiple CAD risks. For stress MIBI today. Code(s): R79.89 - OTHER SPECIFIED ABNORMAL FINDINGS OF BLOOD CHEMISTRY (7) Asthma Code(s): J45.909 - UNSPECIFIED ASTHMA, UNCOMPLICATED Qualifiers: Asthma severity: mild intermittent (8) Bronchitis Code(s): J40 - BRONCHITIS, NOT SPECIFIED ACUTE OR CHRONIC (9) Hyperlipidemia Assessment/Plan: LDL 120 mg/dl; start statin. Nutrition educatio will be important. Code(s): E78.5 - HYPERLIPIDEMIA, UNSPECIFIED
[2019-04-30] MEDS: HEPARIN NA (PORCINE) 5,000 UNITS/ML 1ML VIAL SQ SCH (13:05)
[2019-04-30] MEDS: NICOTINE 21 MG/24 HOURS TOPICAL PATCH TD SCH (13:05)
[2019-04-30 13:09] VITALS: BP 113/77; PULSE 88
[2019-04-30 13:53] LABS: BASO % 0.9 % (0-2.0); EOS % 1.4 % (0-4.5); HEMATOCRIT 45.9 % (35.4-49); HEMOGLOBIN 15.4 GM/dL (11.7-16.9); LYMPH % 26.3 % (8-40); MCH 29.7 pg (25.7-33.7); MCHC 33.6 g/dl (32.0-35.9); MEAN CELL VOLUME 88.3 fl (80-96); MEAN PLT VOLUME 8.2 fl (7.5-11.1); MONO % 4.1 % (3.8-10.2); NEUT % 67.3 % (42.8-82.8); PLATELET COUNT 295 K/MM3 (134-434); RDW 13.5 % (11.9-15.9); WHITE BLOOD COUNT 8.7 K/mm3 (4.0-10.0)
[2019-04-30 14:21] LABS: ALBUMIN 3.7 g/dl (3.4-5.0); BILIRUBIN,TOTAL 0.7 mg/dL (0.2-1); BLOOD UREA NITROGEN 11.4 mg/dL (7-18); CALCIUM 8.8 mg/dL (8.5-10.1); CREATININE 0.9 mg/dL (0.55-1.3); POTASSIUM 4.1 mmol/L (3.5-5.1); TOT PROT 6.8 g/dl (6.4-8.2)
--- NOTE | 2019-04-30 14:22 | CONSULT ---
Consult Consult Specialty:: Endocrinology Referred by:: Nick Salvador Reason for Consultation:: New Onset DM - History of Present Illness Chief Complaint: SOB History of Present Illness: This is a 58 year old male with history of asthma and current daily smoker who presented to the ED yesterday with c/o of shortness of breath since the previous night. SOB didn't improve with albuterol treatment. He denied chest pain. In the ED he was noted be in supraventricular tachycardia to the 170s with a BP 120s/100s. Vagal maneuver with leg raise was attempted, but unsuccessful per ED signout. He was given adenosine 6 mg with improvement of heart rate from 170 to 110, BP 120/90s. On exam, patient reports feeling better, but still having dyspnea with physical exertion. He has not seen a PCP in over 10 years. Pt found to be hyperglycemic. He gives no h/o DM. Has family h/o DM in mother and sister. Denies any recent change in wt. Has been urinating a lot for about a year which he attributes to increased water intake. No visual symptoms, No paresthesia of feet. - History Source History Provided By: Patient, Medical Record - Past Medical History Pulmonary: Yes: Asthma - Alcohol/Substance Use Hx Alcohol Use: No History of Substance Use: reports: Tranquilizers (Ambien). denies: Cocaine, Heroin, Marijuana - Smoking History Smoking history: Current every day smoker Have you smoked in the past 12 months: No Aproximately how many cigarettes per day: 10 - Social History Usual Living Arrangement: With Spouse ADL: Independent Occupation: [employer] History of Recent Travel: Yes Home Medications - Allergies Allergies/Adverse Reactions: Allergies Allergy/AdvReac Type Severity Reaction Status Date / Time ibuprofen [From Advil] AdvReac Intermediate Swelling Verified 04/28/19 13:52 - Home Medications Home Medications: Ambulatory Orders Albuterol 0.083% Nebulizer Nguyen [Ventolin 0.083% Nebulizer Soln -] 1 neb NEB Q6H #30 vial 08/09/16 Albuterol Sulfate [Proair Respiclick] 90 mcg IH ASDIR #1 aer.pow.ba 08/09/16 Azithromycin [Zithromax -] 250 mg PO UTDICT #6 tab 08/09/16 predniSONE [Deltasone -] 40 mg PO DAILY #14 tablet 08/09/16 Lancets [Lancets Ultra Thin] 1 each ACHS #150 each 04/30/19 Miscellaneous Medical Supply [Glucometer Device] 1 each SQ ASDIR #1 kit Miscellaneous Medical Supply [Glucometer Test Strips #100] 1 each SQ ASDIR #1 box 04/30/19 Family Medical History Family Hx Diabetes: Mother, Sister Review of Systems - Review of Systems Constitutional: reports: No Symptoms Eyes: reports: No Symptoms HENT: reports: No Symptoms Neck: reports: No Symptoms Cardiovascular: reports: No Symptoms Gastrointestinal: reports: No Symptoms Genitourinary: reports: No Symptoms Integumentary: reports: No Symptoms Neurological: reports: No Symptoms Endocrine: reports: No Symptoms Physical Exam Vital Signs: Vital Signs Temperature 98 F 04/30/19 13:08 Pulse Rate 88 04/30/19 13:08 Respiratory Rate 18 04/30/19 13:08 Blood Pressure 113/77 04/30/19 13:08 O2 Sat by Pulse Oximetry (%) 98 04/29/19 20:30 Constitutional: Yes: No Distress, Calm Eyes: Yes: Conjunctiva Clear, EOM Intact HENT: Yes: Atraumatic, Normocephalic Neck: Yes: Supple, Trachea Midline Cardiovascular: Yes: Regular Rate and Rhythm Respiratory: Yes: CTA Bilaterally Gastrointestinal: Yes: Normal Bowel Sounds Extremities: Yes: WNL Edema: No Neurological: Yes: Alert, Oriented Labs: CBC, BMP 04/30/19 13:25 Assessment/Plan AP; SVT ASthma New Onset DM Diet exercise discussed Diabetes education done Nutrition consult Monitor BGM Novolog SS coverage Will discharge home on Metformin 500mg BID if renal function remain stable. Oph exam as outpt All questions Teach pt to self monitor blood sugar f/u in office in one week
--- NOTE | 2019-04-30 15:23 | DS ---
Physical Exam: SUBJECTIVE: Patient seen and examined at the bedside. reports feeling better. no chest pain, no shortness of breath. agrees to outpatient follow up. OBJECTIVE: Patient is a 58 year old male with a significant past medical history of asthma and current daily smoker. He presents to the ED on 04/28/19 with c/o of shortness of breath. At home he attempted to use his nebulizer but did not have enough and therefore did not use any. He then woke up with worsening shortness of breath and used his albuterol twice. After albuterol, he began to have palpitations after. He denies chest pain. In the ED he was noted be in supraventricular tachycardia to the 170s with a BP 120s/100s. Vagal maneuver with leg raise was attempted, but unsuccessful per ED signout. He was given adenosine 6 mg with improvement of heart rate from 170 to 110, BP 120/90s. He reports that he has not seen a PCP in over 10 years. He uses his family allbuteral nebulizers and at times will use it up to 15 times per day. He has never been told his blood sugars were elevated. Vital Signs Period Temp Pulse Resp BP Sys/Phipps Pulse Ox Last 24 Hr 97.4 F-98.4 F 75-91 18-18 112-137/74-90 98-98 PHYSICAL EXAM GENERAL: Awake, alert, and fully oriented, in no acute distress. HEAD: Normal with no signs of trauma. EYES: Pupils equal, round and reactive to light, extraocular movements intact, sclera anicteric, conjunctiva clear. No lid lag. EARS, NOSE, THROAT: Ears normal, nares patent, oropharynx clear without exudates. Moist mucous membranes. NECK: Normal range of motion, supple without lymphadenopathy, JVD, or masses. LUNGS: Breath sounds equal, diminished to auscultation bilaterally. no wheezing. HEART: Regular rate and rhythm, normal S1 and S2 without murmur, rub or gallop. ABDOMEN: Soft, nontender, not distended, normoactive bowel sounds, no guarding, no rebound, no masses. No hepatomegaly or splenomegaly. MUSCULOSKELETAL: Normal range of motion at all joints. No bony deformities or tenderness. No CVA tenderness. UPPER EXTREMITIES: No peripheral edema. LOWER EXTREMITIES: No peripheral edema. NEUROLOGICAL: Normal speech. Normal gait. PSYCHIATRIC: Cooperative. Good eye contact. Appropriate mood and affect. SKIN: Warm, dry, normal turgor, no rashes or lesions noted, normal capillary refill. LABS Laboratory Results - last 24 hr 04/29/19 04/29/19 04/29/19 11:00 16:32 16:40 WBC RBC Hgb Hct MCV MCH MCHC RDW Plt Count MPV Absolute Neuts (auto) Neutrophils % Lymphocytes % Monocytes % Eosinophils % Basophils % Nucleated RBC % D-Dimer 347 Sodium Potassium Chloride Carbon Dioxide Anion Gap BUN Creatinine Est GFR (CKD-EPI)AfAm Est GFR (CKD-EPI)NonAf POC Glucometer 179 Random Glucose Hemoglobin A1c % Cancelled Calcium Magnesium Total Bilirubin AST ALT Alkaline Phosphatase Total Protein Albumin Triglycerides Cholesterol Total LDL Cholesterol HDL Cholesterol 04/29/19 04/30/19 04/30/19 21:55 05:44 12:44 WBC RBC Hgb Hct MCV MCH MCHC RDW Plt Count MPV Absolute Neuts (auto) Neutrophils % Lymphocytes % Monocytes % Eosinophils % Basophils % Nucleated RBC % D-Dimer Sodium Potassium Chloride Carbon Dioxide Anion Gap BUN Creatinine Est GFR (CKD-EPI)AfAm Est GFR (CKD-EPI)NonAf POC Glucometer 187 179 147 Random Glucose Hemoglobin A1c % Calcium Magnesium Total Bilirubin AST ALT Alkaline Phosphatase Total Protein Albumin Triglycerides Cholesterol Total LDL Cholesterol HDL Cholesterol 04/30/19 04/30/19 13:25 13:25 WBC 8.7 RBC 5.20 Hgb 15.4 Hct 45.9 MCV 88.3 MCH 29.7 MCHC 33.6 RDW 13.5 Plt Count 295 MPV 8.2 Absolute Neuts (auto) 5.8 Neutrophils % 67.3 Lymphocytes % 26.3 Monocytes % 4.1 Eosinophils % 1.4 Basophils % 0.9 Nucleated RBC % 0 D-Dimer Sodium 139 Potassium 4.1 Chloride 105 Carbon Dioxide 29 Anion Gap 5 L BUN 11.4 Creatinine 0.9 Est GFR (CKD-EPI)AfAm 108.73 Est GFR (CKD-EPI)NonAf 93.82 POC Glucometer Random Glucose 143 H Hemoglobin A1c % Calcium 8.8 Magnesium 2.0 Total Bilirubin 0.7 AST 17 ALT 32 Alkaline Phosphatase 111 Total Protein 6.8 Albumin 3.7 Triglycerides 121 Cholesterol 218 H Total LDL Cholesterol 142 H HDL Cholesterol 48 HOSPITAL COURSE: Date of Admission:04/28/19 Date of Discharge: 04/30/19 Minutes to complete discharge: 45 Discharge Summary Problems reviewed: Yes Reason For Visit: PALPITATIONS Current Active Problems Cigarette nicotine dependence (Acute) Diabetes (Acute) Dyspnea (Acute) Hyperglycemia (Acute) Hyperlipidemia (Acute) NSTEMI (non-ST elevated myocardial infarction) (Acute) Palpitations (Acute) Prophylactic measure (Acute) SVT (supraventricular tachycardia) (Acute) Troponin level elevated (Acute) Condition: Improved - Instructions Diet, Activity, Other Instructions: Mr Otilio Degroot were admitted to [facility] for uncontrolled heart rate with palpitations, new onset diabetes and uncontrolled asthma. Here are our recommendations: Elevated Heart Rate/Palpitations You were found to have a condition called SVT on the EKG. What is SVT. SVT stands for supraventricular tachycardia. It is a type of rapid heart rate that begins in the upper chambers of the heart. We are controlling the heart rate with a medication called Cardizem which we will be sending you home on. This medication has been called into your pharmacy. Please note that going forward, this medication may need to be adjusted or changed and it is important for you to follow up with the phlebotomist lab assistant. Their information is enclosed. New Onset Diabetes: Diabetes is a condition where you body does not make sufficient insulin. Your HMGa1c was 8.8. A HMGA1c is a blood test that tells us how high your blood sugars have been in the last 3 months. Normal HMGA1c is below 6. We have sent you a glucometer so that you can monitor your blood sugars before meals. We have sent you a referral to Dr. Roman. Dr. Roman is a snow maker and can help you manage your diabetes. It is important that you have yearly eye exams to make sure your vision is not affected with the diabetes. Start Metformin 500mg TWICE per day Uncontrolled asthma: We have started you on Singulair and a inhaler called Xopenex. This inhaler can be used as needed every 8 hours. Please follow up with pulmonary by calling their office for an appointment. FOLLOW UPS: Since you have not seen a primary care doctor, we have assigned one for you. Seeing a primary care doctor routinely can keep you out of the hospital. YOU HAVE AN APPOINTMENT FOLLOWS: DR CHAPARRITA HANCOCK @ [id number] [facility] ON 05/07/2019 AT 2PM. PLEASE BRING YOUR DISCHARGE PAPERWORK WITH YOU WELL YOUR INSURANCE CARD. NEW MEDICATIONS: Cardizem 120mg XL once per day- this controls your heart rate from beating too fast Lisinopril 2.5 mg DAILY - this is for your blood pressure control and also protects your kidneys Singular 10mg saravia at bedtime - this is for your asthma control, take once daily at bedtime Xeponex inhaler - take every 8 hours for shortness of breath Glucometer - check your blood sugars, write down the number and bring it to Dr. Roman. Your blood sugars should be checked before meals. Lipitor 20mg DAILY at bedtime - your cholesterol levels were elevated, this along with diet will help decrease your cholesterol and overall promote your heart health. Referrals: Chaparrita Hancock MD [Staff Physician] - Clemente Price MD [Staff Physician] - Prabhakar Gaxiola DPM [Staff Physician] - Disposition: HOME - Home Medications Comprehensive Discharge Medication List: Ambulatory Orders Albuterol 0.083% Nebulizer Nguyen [Ventolin 0.083% Nebulizer Soln -] 1 neb NEB Q6H #30 vial 08/09/16 Albuterol Sulfate [Proair Respiclick] 90 mcg IH ASDIR #1 aer.pow.ba 08/09/16 Azithromycin [Zithromax 250mg Tablets -] 250 mg PO UTDICT #6 tab 08/09/16 Aspirin Coated [Ecotrin -] 81 mg PO DAILY #90 tablet.ec 04/30/19 Atorvastatin Ca [Lipitor] 20 mg PO HS #90 tablet 04/30/19 Diltiazem Cd [Cardizem Cd -] 120 mg PO DAILY #120 cap.cd.24h 04/30/19 Lancets [Lancets Ultra Thin] 1 each ACHS #150 each 04/30/19 Levalbuterol HCl [Xopenex] 0.31 mg IH Q8H PRN #7 vial.neb 04/30/19 Lisinopril [Prinivil] 2.5 mg PO DAILY #100 tablet 04/30/19 Miscellaneous Medical Supply [Glucometer Device] 1 each SQ ASDIR #1 kit Miscellaneous Medical Supply [Glucometer Test Strips #100] 1 each SQ ASDIR #1 box 04/30/19 Montelukast Na [Singulair -] 10 mg PO HS #90 tab.chew 04/30/19 Nicotine Patch [Nicoderm Patch -] 21 mg TD DAILY #90 patch 04/30/19 metFORMIN HCL [Glucophage -] 500 mg PO BID #90 tablet 04/30/19 Problem List - Problems (1) NSTEMI (non-ST elevated myocardial infarction) Assessment/Plan: elevated troponins in the setting of SVT. Required adenosine 6mg in the ED for rate control after ekg showed SVT 170s. He was successfully converted. Now currently NSR. Etiology of SVT unclear, but has been overusing allbuterol up to 15 times per day at home. He does not have a PCP. echocardiogram noted and reviewed. mild tricuspid regurg. overall study with suboptimal views. Stress test negative Cardiology consulted and following troponins .12 .16 .10 without chest pain. Nstemi vs. demand ischemia per cardiology. per cardiology, can be discharged and follow up outpatient. On cardizem 120mg daily for rate control Code(s): I21.4 - NON-ST ELEVATION (NSTEMI) MYOCARDIAL INFARCTION (2) SVT (supraventricular tachycardia) Assessment/Plan: resolved. on cardizem Code(s): I47.1 - SUPRAVENTRICULAR TACHYCARDIA (3) Troponin level elevated Assessment/Plan: elevated troponins 12>16>10 likely demand ischemia vs nstemi negative stress test. cardiology follow up outpatient Code(s): R79.89 - OTHER SPECIFIED ABNORMAL FINDINGS OF BLOOD CHEMISTRY (4) Palpitations Assessment/Plan: see above. Code(s): R00.2 - PALPITATIONS (5) Asthma Assessment/Plan: uncontrolled asthma with very poor follow up and overuse of allbuterol pulmonary consulted Code(s): J45.909 - UNSPECIFIED ASTHMA, UNCOMPLICATED Qualifiers: Asthma severity: mild intermittent (6) Diabetes Assessment/Plan: elevated glucose on admission. HmgA1c 8.8% patient taught how to use glucometer and dietary teaching on diabetes will send home on metformin 500 bid with endocrinology follow up Code(s): E11.9 - TYPE 2 DIABETES MELLITUS WITHOUT COMPLICATIONS (7) Dyspnea Assessment/Plan: resolved Code(s): R06.00 - DYSPNEA, UNSPECIFIED (8) Hypoxia Assessment/Plan: resolved Code(s): R09.02 - HYPOXEMIA (9) Prophylactic measure Assessment/Plan: discharge home. Code(s): Z29.9 - ENCOUNTER FOR PROPHYLACTIC MEASURES, UNSPECIFIED This patient is new to me today: No Emergency Visit: Yes ED Registration Date: 04/28/19 Care time: The patient presented to the Emergency Department on the above date and was hospitalized for further evaluation of their emergent condition. Critical Care patient: No - Discharge Referral Referred to [facility] Yes Physician Referral: Bradley Roldan MD ([facility])
[2019-04-30] MEDS ORDERED: ATORVASTATIN CA 20 MG TABLET (FP) PO SCH (22:00)
[2019-04-30] MEDS ORDERED: MONTELUKAST NA 5 MG TAB.CHEW PO SCH (22:00)
--- NOTE | 2019-05-01 12:58 | EKG ---
Test Reason : Blood Pressure : / mmHG Vent. Rate : 115 BPM Atrial Rate : 115 BPM P-R Int : 136 ms QRS Dur : 082 ms QT Int : 298 ms P-R-T Axes : -02 -15 019 degrees QTc Int : 412 ms SINUS TACHYCARDIA WHEN COMPARED WITH ECG OF 28-APR-2019 13:45, QUESTIONABLE CHANGE IN QRS AXIS Confirmed by COTY LAFLEUR MD ([id number]) on 05/01/2019 12:57:38 PM Referred By: Confirmed By:COTY LAFLEUR MD
== END 2019-04-30 16:37 | disposition home or self-care (01) | DRG 281 ==
LOC: JER 13:42 → JERBED 16:43 → J4W 04-29 14:40
PROVIDERS: ADMIT Internal Medicine; ATTEND Nurse Practitioner Family
DX: I21.4 Non-ST elevation (NSTEMI) myocardial infarction (principal); I47.1 Supraventricular tachycardia; J45.909 Unspecified asthma, uncomplicated; R79.89 Other specified abnormal findings of blood chemistry; R00.2 Palpitations; R09.02 Hypoxemia; F17.210 Nicotine dependence, cigarettes, uncomplicated; H10.12 Acute atopic conjunctivitis, left eye; J40 Bronchitis, not specified as acute or chronic; H10.9 Unspecified conjunctivitis; E11.65 Type 2 diabetes mellitus with hyperglycemia
CPT/HCPCS: 36415; 71045-TC-FY; 78452-TC; 80053; 80061; 80307; 81003; 82550; 82553; 82962; 83036; 83721; 83735; 84100; 84439; 84443; 84484; 85025; 85379; 85610; 85730; 87040; 87086; 93005; 93010; 93017; 93306-TC; 99285-25; A9502; J1644; J7030

== ENCOUNTER 2023-10-09 02:33 | Inpatient (IN) | payer BC ==
[2023-10-09 02:36] VITALS: BMI 24.1
[2023-10-09] MEDS ORDERED: LEVALBUTEROL HCL 0.63 MG/3 ML VIAL.NEB. IH ONE ×4 (02:45→10:47)
[2023-10-09] MEDS ORDERED: MAGNESIUM SULFATE IN WATER 2 GM/50 ML IVPB IVPB ONE (02:45)
[2023-10-09 02:57] LABS: VENOUS BASE EXCESS -2.6 mmol/L (-2-2); VENOUS O2 SATURATION 19.8 % (70-80); VENOUS PCO2 63.8 mmHg (38-52); VENOUS PH 7.237 (7.310-7.410)
[2023-10-09 02:59] LABS: BASO % 0.2 % (0-2.0); EOS % 0.1 % (0-4.5); HEMATOCRIT 47.8 % (35.4-49); HEMOGLOBIN 15.9 GM/dL (11.7-16.9); LYMPH % 8.6 % (8-40); MCH 29.7 pg (25.7-33.7); MCHC 33.3 g/dl (32.0-35.9); MEAN CELL VOLUME 89.1 fl (80-96); MEAN PLT VOLUME 7.8 fl (7.5-11.1); MONO % 3.9 % (3.8-10.2); NEUT % 87.2 % (42.8-82.8); PLATELET COUNT 410 10^3/uL (134-434); RBC 5.37 M/mm3 (4.00-5.60); RDW 14.4 % (11.9-15.9); WHITE BLOOD COUNT 10.2 K/mm3 (4.0-10.0)
[2023-10-09] MEDS: LEVALBUTEROL HCL 0.63 MG/3 ML VIAL.NEB. IH ONE ×3 (03:00→03:22)
[2023-10-09] MEDS ORDERED: ADENOSINE 6 MG/2 ML VIAL IVPUSH ONE (03:00)
[2023-10-09] MEDS: MAGNESIUM SULF 50% (8.12 MEQ/2 ML-1 GM VIAL) IVPB ONE (03:00)
[2023-10-09 03:06] LABS: INR 0.95 (0.83-1.09)
[2023-10-09 03:09] LABS: ACTIVATED PTT 37.8 SECONDS (25.2-36.5)
[2023-10-09] MEDS: ADENOSINE 6 MG/2 ML VIAL IVPUSH ONE ×2 (03:11→03:22)
[2023-10-09 03:19] LABS: CHLORIDE 102 mmol/L (98-107); SODIUM 140 mmol/L (136-145)
[2023-10-09 03:20] LABS: CALCIUM 9.9 mg/dL (8.5-10.1)
[2023-10-09 03:21] LABS: ALBUMIN 3.8 g/dl (3.4-5.0); ANION GAP 11 mmol/L (4-13); BLOOD UREA NITROGEN 17.3 mg/dL (7-18); CO2 26 mmol/L (21-32); GLUCOSE,RANDOM 290 mg/dL (74-106)
[2023-10-09 03:24] LABS: CREATININE 1.2 mg/dL (0.55-1.3); SGOT/AST 37 U/L (15-37); SGPT/ALT 51 U/L (13-61)
[2023-10-09 03:26] LABS: BILIRUBIN,TOTAL 0.3 mg/dL (0.2-1); TOT PROT 7.7 g/dl (6.4-8.2)
[2023-10-09 03:27] LABS: ALK PHOS 113 U/L (45-117)
[2023-10-09 04:07] LABS: ARTERIAL BLD GAS O2 SATURATION 98.8 % (95-98); ARTERIAL BLOOD GAS BASE EXCESS -3.1 mmol/L (-2-2); ARTERIAL BLOOD GAS PO2 154.4 mmHg (80-100); ARTERIAL BLOOD GAS pH 7.318 (7.350-7.450)
[2023-10-09 04:30] LABS: ALLENS TEST POSITIVE; VENT MODE S/T; VENT RATE 12
[2023-10-09] MEDS ORDERED: LORazepam 1 MG TABLET PO PRN (05:52)
[2023-10-09 06:33] LABS: URINE APPEARANCE CLEAR; URINE BILIRUBIN NEGATIVE (NEGATIVE); URINE COLOR YELLOW; URINE GLUCOSE (UA) 3+ (NEGATIVE); URINE KETONE TRACE (NEGATIVE); URINE LEUK ESTERASE NEGATIVE (NEGATIVE); URINE NITRITE NEGATIVE (NEGATIVE); URINE PROTEIN TRACE (NEGATIVE); URINE UROBILINOGEN 0.2 mg/dL (0.2-1.0)
[2023-10-09 06:38] LABS: COCAINE, UR NEGATIVE (NEGATIVE); METHADONE, UR NEGATIVE (NEGATIVE); OPIATES, URI NEGATIVE (NEGATIVE); URINE BARBITURATES NEGATIVE (NEGATIVE); URINE BENZODIAZEPINES NEGATIVE (NEGATIVE)
[2023-10-09 06:39] LABS: PHENCYCLIDINE,URINE NEGATIVE (NEGATIVE); URINE AMPHETAMINES NEGATIVE (NEGATIVE)
[2023-10-09] MEDS: LEVALBUTEROL HCL 0.63 MG/3 ML VIAL.NEB. IH SCH (06:59)
[2023-10-09] MEDS: INSULIN ASPART SLIDING SCALE (NOVOLOG) 1 VIAL SQ SCH (07:16)
[2023-10-09] MEDS ORDERED: INSULIN (NOVOLOG) ASPART 100 UNITS/ML 10ML VIAL ONE (07:17)
[2023-10-09 07:32] LABS: HEMATOCRIT 43.2 % (35.4-49); HEMOGLOBIN 13.9 GM/dL (11.7-16.9); MCH 28.7 pg (25.7-33.7); MCHC 32.2 g/dl (32.0-35.9); MEAN CELL VOLUME 89.2 fl (80-96); MEAN PLT VOLUME 7.4 fl (7.5-11.1); PLATELET COUNT 347 10^3/uL (134-434); RBC 4.84 M/mm3 (4.00-5.60); RDW 14.3 % (11.9-15.9)
[2023-10-09 07:46] LABS: POTASSIUM 4.9 mmol/L (3.5-5.1)
[2023-10-09 07:56] LABS: BLOOD UREA NITROGEN 16.9 mg/dL (7-18)
[2023-10-09 07:57] LABS: CALCIUM 8.9 mg/dL (8.5-10.1)
[2023-10-09 07:58] LABS: ALBUMIN 3.2 g/dl (3.4-5.0); MAGNESIUM 2.5 mg/dL (1.8-2.4)
[2023-10-09 08:00] LABS: PHOSPHOROUS 3.8 mg/dL (2.5-4.9)
[2023-10-09 08:01] LABS: CREATININE 0.9 mg/dL (0.55-1.3)
[2023-10-09 08:02] LABS: BILIRUBIN,TOTAL 0.3 mg/dL (0.2-1); TOT PROT 6.8 g/dl (6.4-8.2)
[2023-10-09] MEDS ORDERED: FOLIC ACID 1 MG TABLET (FP) ONE (09:22)
[2023-10-09] MEDS ORDERED: THIAMINE HCL 100 MG TABLET (FP) ONE (09:22)
[2023-10-09] MEDS ORDERED: ATORVASTATIN CA 10 MG TABLET (FP) ONE (09:22)
[2023-10-09] MEDS ORDERED: methylPREDNISolone NA SUCC 40 MG/1 ML VIAL ONE (09:23)
[2023-10-09] MEDS ORDERED: ENOXAPARIN NA (PORCINE) 40 MG/0.4 ML DISP.SYRIN SQ ONE (09:23)
[2023-10-09] MEDS ORDERED: NICOTINE 14 MG/24 HOURS TOPICAL PATCH TD ONE (09:23)
[2023-10-09] MEDS: NICOTINE 14 MG/24 HOURS TOPICAL PATCH TD SCH (09:35)
[2023-10-09] MEDS: BUDESONIDE/FORMETEROL FUMARATE 160/4.5 mcg INHALER IH SCH (09:35)
[2023-10-09] MEDS: FOLIC ACID 1 MG TABLET (FP) PO SCH (09:35)
[2023-10-09] MEDS: ENOXAPARIN NA (PORCINE) 40 MG/0.4 ML DISP.SYRIN SQ SCH (09:35)
[2023-10-09] MEDS: ATORVASTATIN CA 10 MG TABLET (FP) PO SCH (09:35)
[2023-10-09] MEDS: methylPREDNISolone NA SUCC 40 MG/1 ML VIAL IVPUSH SCH (09:35)
[2023-10-09] MEDS: THIAMINE HCL 100 MG TABLET (FP) PO SCH (09:36)
[2023-10-09] MEDS ORDERED: AZITHROMYCIN IVPB 500 MG/250 ML BAG IVPB ONE (09:46)
[2023-10-09] MEDS ORDERED: IPRATROPIUM BR 0.02% 0.5 MG/2.5 ML VIAL.NEB. NEB PRN (09:56)
[2023-10-09] MEDS: AZITHROMYCIN IVPB 500 MG/250 ML BAG IVPB SCH (10:04)
[2023-10-09 10:24] LABS: ANISOCYTOSIS 0; HELMET CELLS 0; HOWELL-JOLLY BODIES 0; MACROCYTOSIS 0; OVALOCYTE 0; ROULEAU 0; SICKELED CELLS 0; TARGET CELLS 0; TEAR DROP CELLS 0; TOXIC GRANULATION 0
[2023-10-09] MEDS ORDERED: LORazepam 1 MG TABLET PO SCH (11:00)
[2023-10-10 06:50] LABS: BASO % 0.3 % (0-2.0); HEMATOCRIT 43.1 % (35.4-49); HEMOGLOBIN 13.8 GM/dL (11.7-16.9); MCH 28.5 pg (25.7-33.7); MEAN PLT VOLUME 7.8 fl (7.5-11.1); MONO % 2.6 % (3.8-10.2); NEUT % 90.1 % (42.8-82.8); PLATELET COUNT 358 10^3/uL (134-434); RBC 4.85 M/mm3 (4.00-5.60); WHITE BLOOD COUNT 12.3 K/mm3 (4.0-10.0)
[2023-10-10 07:03] LABS: POTASSIUM 5.2 mmol/L (3.5-5.1)
[2023-10-10 07:11] LABS: ALBUMIN 3.1 g/dl (3.4-5.0); BLOOD UREA NITROGEN 23.7 mg/dL (7-18); CALCIUM 9.3 mg/dL (8.5-10.1); MAGNESIUM 2.4 mg/dL (1.8-2.4)
[2023-10-10 07:14] LABS: CREATININE 0.9 mg/dL (0.55-1.3)
[2023-10-10 07:16] LABS: TOT PROT 6.7 g/dl (6.4-8.2)
[2023-10-10 07:18] LABS: BILIRUBIN,TOTAL 0.2 mg/dL (0.2-1)
[2023-10-10] MEDS: INSULIN (NOVOLOG) ASPART 100 UNITS/ML 10ML VIAL SQ SCH (08:21)
[2023-10-10] MEDS: AZITHROMYCIN 250 MG TABLET PO SCH (11:23)
[2023-10-10] MEDS: INSULIN (LEVEMIR) 100 UNITS/ML UNITS SQ SCH (11:25)
[2023-10-10] MEDS: SODIUM ZIRCONIUM CYCLOSILICATE (LOKELMA) 5 GM PACKET PO ONE (11:30)
[2023-10-10] MEDS ORDERED: LEVALBUTEROL HCL 0.31 MG/3 ML VIAL.NEB IH ONE (13:05)
[2023-10-10] MEDS: EMPAGLIFLOZIN (JARDIANCE) 10 MG TABLET PO SCH (14:25)
[2023-10-10] MEDS: LISINOPRIL 5 MG TABLET PO SCH (14:25)
[2023-10-11] MEDS ORDERED: LORazepam 1 MG TABLET PO SCH (05:00)
[2023-10-11 06:54] LABS: BASO % 0.3 % (0-2.0); HEMATOCRIT 44.4 % (35.4-49); HEMOGLOBIN 14.4 GM/dL (11.7-16.9); LYMPH % 9.1 % (8-40); MCH 28.8 pg (25.7-33.7); MCHC 32.4 g/dl (32.0-35.9); MEAN CELL VOLUME 88.8 fl (80-96); MEAN PLT VOLUME 7.8 fl (7.5-11.1); MONO % 3.1 % (3.8-10.2); NEUT % 87.5 % (42.8-82.8); PLATELET COUNT 378 10^3/uL (134-434); RDW 13.9 % (11.9-15.9); WHITE BLOOD COUNT 19.9 K/mm3 (4.0-10.0)
[2023-10-11 07:01] LABS: POTASSIUM 4.7 mmol/L (3.5-5.1)
[2023-10-11 07:12] LABS: ALBUMIN 3.3 g/dl (3.4-5.0); CALCIUM 9.5 mg/dL (8.5-10.1)
[2023-10-11 07:13] LABS: BLOOD UREA NITROGEN 25.3 mg/dL (7-18)
[2023-10-11 07:15] LABS: CREATININE 0.9 mg/dL (0.55-1.3)
[2023-10-11 07:17] LABS: TOT PROT 6.8 g/dl (6.4-8.2)
[2023-10-11 07:29] LABS: BILIRUBIN,TOTAL 0.2 mg/dL (0.2-1)
[2023-10-11] MEDS: ATORVASTATIN CA 20 MG TABLET (FP) PO SCH (09:33)
[2023-10-11] MEDS ORDERED: methylPREDNISolone NA SUCC 40 MG/1 ML VIAL IVPUSH SCH (10:15)
[2023-10-11 15:14] VITALS: TEMP 98.1
[2023-10-11 18:49] VITALS: BP 120/81; PULSE 88; RESP 18
[2023-10-12] MEDS ORDERED: LORazepam 0.5 MG TABLET PO PRN
[2023-10-12] MEDS ORDERED: LORazepam 0.5 MG TABLET PO SCH (05:00)
[2023-10-12] MEDS ORDERED: predniSONE 20 MG TABLET (UD) PO SCH (10:00)
[2023-10-13] MEDS ORDERED: LORazepam 0.5 MG TABLET PO ONE (05:00)
== END 2023-10-11 20:44 | disposition home or self-care (01) | DRG 309 ==
LOC: JER 02:33 → JERBED 04:36 → J4W 14:20
PROVIDERS: ADMIT Internal Medicine; ATTEND Internal Medicine
DX: I47.19 Other supraventricular tachycardia (principal); J45.901 Unspecified asthma with (acute) exacerbation; F10.10 Alcohol abuse, uncomplicated; E11.65 Type 2 diabetes mellitus with hyperglycemia; I10 Essential (primary) hypertension; E78.5 Hyperlipidemia, unspecified; F17.210 Nicotine dependence, cigarettes, uncomplicated; J44.9 Chronic obstructive pulmonary disease, unspecified
CPT/HCPCS: 36415; 36600; 71045-TC-FY; 80053; 80061; 80307; 81003; 82803; 82962; 83036; 83735; 84100; 84443; 84484; 85025; 85610; 85730; 93005; 93010; 93306-TC; 94660; 94761; 99291

== ENCOUNTER 2024-06-19 03:50 | Emergency (ER) | payer BC ==
[2024-06-19 03:58] VITALS: BP 141/87; PULSE 100; RESP 20; BMI 30.3
[2024-06-19 03:59] VITALS: TEMP 98
[2024-06-19] MEDS ORDERED: ACETAMINOPHEN 325 MG TABLET (FP) ONE (04:47)
[2024-06-19] MEDS ORDERED: ALBUTEROL SO4 2.5/IPRATROPIUM 0.5 INH SOL 3 ML VIAL.NEB. NEB ONE (04:47)
[2024-06-19] MEDS ORDERED: LIDOCAINE 4% PATCH TP ONE (04:48)
[2024-06-19] MEDS: LIDOCAINE 4% PATCH TP ONE (04:54)
[2024-06-19] MEDS: ALBUTEROL SO4 2.5/IPRATROPIUM 0.5 INH SOL 3 ML VIAL.NEB. NEB ONE (04:55)
[2024-06-19] MEDS: ACETAMINOPHEN 325 MG TABLET (FP) PO ONE (04:55)
[2024-06-19] MEDS: KETOROLAC TROMETHAMINE 30 MG/1 ML VIAL IM ONE (05:09)
[2024-06-19] MEDS ORDERED: LIDOCAINE PATCH REMOVAL MC SCH (22:00)
== END 2024-06-19 06:33 | disposition home or self-care (01) ==
LOC: JER 03:50
PROC: 3E0F7GC Introduction of Other Therapeutic Substance into Respiratory Tract, Via Natural or Artificial Opening (ICD-10-PCS; principal; 2024-06-19)
DX: R10.9 Unspecified abdominal pain (principal); R05.9 Cough, unspecified; R09.81 Nasal congestion
CPT/HCPCS: 71046-TC-FY; 99284-25